=== PATIENT | male | born 1970 | race Caucasian/White ===

== ENCOUNTER 2016-10-31 22:28 | Emergency (ER) | payer BC ==
[2016-10-31 22:36] VITALS: BP 121/79
--- NOTE | 2016-11-01 01:11 | EDM.PDOC ---
ED HPI GENERAL MEDICAL PROBLEM - General Chief Complaint: Syncope Stated Complaint: [facility] Time Seen by Provider: 10/31/16 22:43 Source of Information: Reports: Patient, Family (), RN Notes Reviewed History Limitations: Reports: No Limitations - History of Present Illness INITIAL COMMENTS - FREE TEXT/NARRATIVE: The patient states that he was engaging in sexual activity with his around 22:15, when he developed chest pain that radiated up into the left side of his neck, followed by syncope. The patient has had numerous episodes of this since March 2016. The syncope usually resolves after the patient's slaps his face, however, today it did not, therefore she called EMS. EMS apparently arrived, however, the patient and his then drove themselves to the ED, therefore we have no report from EMS. The patient's states that the patient had 2 syncopal or near-syncopal episodes en route to the ED. The patient's states that this occurs about 3 out of 4 times that they have intercourse. 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 Tonight's episode is the fourth or fifth time in the past 2 weeks. The patient has had prior workup for this condition. He has been seen in this and other ERs several times. ER workups have always been negative. He has undergone a stress test, which may have shown some sort of a rhythm disturbance with increased activity, although the patient is not sure. He subsequently underwent a coronary angiogram which was apparently clean. He states that at one point he was placed on a blood pressure medication which he took for about a month, but then stopped because they made his joints ache. At one time, an emergency physician suggested that the patient might be suffering from an anxiety attack, and prescribed the patient Ativan, which he takes only after he becomes symptomatic, including tonight. At present, the patient is complaining only of left subclavicular pain. His vitals here in the ED are normal. The patient's PCP is Dr. Flores. Left Clavicle Pain Score (Numeric/FACES): 10 - Related Data Allergies Allergy/AdvReac Type Severity Reaction Status Date / Time morphine Allergy Respiratory Verified 03/11/16 12:25 Distress Home Meds: Home Meds Ascorbic Acid [Vitamin C] 1,000 mg PO DAILY 03/30/15 [History] Calcium Carbonate [Calcium] 500 mg PO DAILY 03/30/15 [History] Cyanocobalamin (Vitamin B12) [Vitamin B12] 1,000 mcg PO DAILY 03/30/15 [History] Levothyroxine 125 mcg PO DAILY 03/30/15 [History] Mancore. PO BID 03/30/15 [History] Multivitamin [Daily Multiple Vitamin] 1 tab PO DAILY 03/30/15 [History] Naproxen Sodium 220 mg PO DAILY 03/30/15 [History] LORazepam [Ativan] 1 mg PO ASDIRECTED PRN #16 tablet 03/11/16 [Rx] Past Medical History Endocrine/Metabolic History: Reports: Hypothyroidism - Past Surgical History Musculoskeletal Surgical History: Reports: Arthroscopic Knee (right, x 2) Social & Family History - Family History Family Medical History: Noncontributory - Tobacco Use Smoking Status *Q: Former Smoker Tobacco Use Within Last Twelve Months: Cigars Years of Tobacco use: 1 Packs/Tins Daily: 0.1 - Alcohol Use Alcohol Use History: Yes Alcohol Use Frequency: Socially - Recreational Drug Use Recreational Drug Use: No - Living Situation & Occupation Living situation: Reports: , with Spouse, with Family (3 kids) 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) ED ROS GENERAL - Review of Systems Review Of Systems: See Below Constitutional: Reports: No Symptoms HEENT: Reports: No Symptoms Respiratory: Reports: No Symptoms Cardiovascular: Reports: No Symptoms Endocrine: Reports: No Symptoms GI/Abdominal: Reports: No Symptoms : Reports: No Symptoms Musculoskeletal: Reports: No Symptoms Skin: Reports: No Symptoms Neurological: Reports: No Symptoms Psychiatric: Reports: No Symptoms Hematologic/Lymphatic: Reports: No Symptoms Immunologic: Reports: No Symptoms - Physical Exam Exam: See Below Exam Limited By: No Limitations General Appearance: Alert, WD/WN, No Apparent Distress Eye Exam: Bilateral Eye: Normal Inspection Ears: Normal External Exam, Hearing Grossly Normal Nose: Normal Inspection, No Blood Throat/Mouth: Normal Inspection, Normal Lips, Normal Voice, No Airway Compromise Head Exam: Atraumatic, Normocephalic Neck: Normal Inspection, Full Range of Motion Respiratory/Chest: No Respiratory Distress, Lungs Clear, Normal Breath Sounds, No Accessory Muscle Use Cardiovascular: Normal Peripheral Pulses, Regular Rate, Rhythm, No Gallop, No JVD, No Murmur, No Rub GI/Abdominal: Normal Bowel Sounds, Soft, Non-Tender, No Organomegaly, No Distention, No Abnormal Bruit, No Mass (Male) Exam: Deferred Rectal (Males) Exam: Deferred Neuro Exam (Abbreviated): Alert, Oriented, Normal Cognition, No Motor/Sensory Deficits Back Exam: Normal Inspection, Full Range of Motion, NT Extremities: Normal Inspection, Normal Range of Motion, No Pedal Edema, Normal Capillary Refill Psychiatric: Normal Affect Skin Exam: Warm, Dry, Intact, Normal Color, No Rash EKG INTERPRETATION EKG Date: 10/31/16 Time: 23:55 Rhythm: NSR Rate (Beats/Min): 81 [place]: Normal P-Wave: Present (short W[place] interval - 114 ms) QRS: Normal ST-T: Normal QT: Normal Comparison: Change From Previous EKG (03/11/2016 - had inverted P-waves) Course - Vital Signs Last Recorded V/S: Last Vital Signs Temp 36.8 C 10/31/16 22:32 Pulse 100 10/31/16 22:32 Resp 21 H 10/31/16 22:32 BP 121/79 10/31/16 22:32 Pulse Ox 94 L 10/31/16 22:32 Orthostatic Blood Pressure [ 119/79 Standing] Orthostatic Blood Pressure [ 116/63 Sitting] - Orders/Labs/Meds Orders: Active Orders 24 hr Category Date Time Status EKG Documentation Completion [RC] STAT Care 10/31/16 23:32 Active Orthostatic Vital Signs [RC] STAT Care 10/31/16 22:44 Active Ang Chest [CT] Stat Exams 10/31/16 23:32 Taken Labs: Laboratory Tests 10/31/16 10/31/16 10/31/16 Range/Units 23:45 23:45 23:50 WBC 8.72 (4.23-9.07) K/mm3 RBC 4.40 L (4.63-6.08) M/mm3 Hgb 14.0 (13.7-17.5) gm/L Hct 42.0 (40.1-51.0) % MCV 95.5 H (79.0-92.2) fl MCH 31.8 (25.7-32.2) pg MCHC 33.3 (32.2-35.5) g/dl RDW Std Deviation 47.1 H (35.1-43.9) fL Plt Count 285 (163-337) K/mm3 MPV 9.3 L (9.4-12.3) fl Neutrophils % (Manual) 56 (40-60) % Band Neutrophils % 0 (0-10) % Lymphocytes % (Manual) 30 (20-40) % Atypical Lymphs % 2 % Monocytes % (Manual) 8 (2-10) % Eosinophils % (Manual) 4 (0.8-7.0) % Basophils % (Manual) 0 L (0.2-1.2) Platelet Estimate Adequate Plt Morphology Comment Normal Poikilocytosis 1+ slight Anisocytosis 1+ slight Microcytosis 1+ slight Macrocytosis 1+ slight Tear Drop Cells 1+ slight RBC Morph Comment Abnormal Sodium 140 (136-145) mEq/L Potassium 4.0 (3.5-5.1) mEq/L Chloride 106 (98-107) mEq/L Carbon Dioxide 23 (21-32) mEq/L Anion Gap 15.0 (5-15) BUN 18 (7-18) mg/dL Creatinine 1.3 (0.7-1.3) mg/dL Est Cr Clr Drug Dosing TNP Estimated GFR (MDRD) 60 (>60) mL/min BUN/Creatinine Ratio 13.8 L (14-18) Glucose 96 (74-106) mg/dL Calcium 9.0 (8.5-10.1) mg/dL Total Bilirubin 0.2 (0.2-1.0) mg/dL AST 66 H (15-37) U/L ALT 44 (16-63) U/L Alkaline Phosphatase 72 (46-116) U/L Total Protein 7.3 (6.4-8.2) g/dl Albumin 4.0 (3.4-5.0) g/dl Globulin 3.3 gm/dL Albumin/Globulin Ratio 1.2 (1-2) Urine Opiates Screen Negative (NEGATIVE) Ur Buprenorphine Scrn Negative (NEGATIVE) Ur Oxycodone Screen Negative (NEGATIVE) Urine Methadone Screen Negative (NEGATIVE) Ur Propoxyphene Screen Negative (NEGATIVE) Ur Barbiturates Screen Negative (NEGATIVE) Ur Tricyclics Screen Negative (NEGATIVE) Ur Phencyclidine Scrn Negative (NEGATIVE) Ur Amphetamine Screen Negative (NEGATIVE) U Methamphetamines Scrn Negative (NEGATIVE) U Benzodiazepines Scrn Negative (NEGATIVE) U Cocaine Metab Screen Negative (NEGATIVE) U Marijuana (THC) Screen Negative (NEGATIVE) - Radiology Interpretation Free Text/Narrative:: CT angiogram of the chest is read by [facility] as "No acute findings." - Re-Assessments/Exams Free Text/Narrative Re-Assessment/Exam: 11/01/16 01:23 Test results discussed with the patient and his . 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 Additionally , he does not have symptoms if he is exercising but not otherwise emotionally stressed. I will refer the patient to Dr. Prasad, EP System Consultant at [facility]. In the meantime, I am advising him that he avoid any of the known precipitators of his symptoms, such as arguments with his teenager, excessive stress at work, and sexual intercourse. The patient and his have agreed. Departure - Departure Time of Disposition: 01:44 Disposition: Home, Self-Care 01 Condition: Good Clinical Impression: Syncope, Shortened WY interval - Discharge Information Referrals: PCP,Unknown [Primary Care Provider] - Favian Prasad [Ordering Only Provider] - Forms: ED Department Discharge Additional Instructions: You were seen in the emergency room for chest pain radiating into your neck, along with passing out after sexual intercourse. Workup in the ER included blood work, a urine drug screen, an ECG, a CT angiogram of your chest, and positional blood pressure checks. Your entire workup was unremarkable, with the exception of your ECG, which showed a normal sinus rhythm with a short WY interval. It was compared to a prior ECG dated 03/11/2016, which, at that time, you had inverted P waves. We are concerned that you may have a condition called catecholaminergic polymorphous ventricular tachycardia. Please follow-up with the EP System Consultant Dr. Favian Prasad, at the next available appointment. In the meantime, we recommend that you avoid known precipitators of your symptoms, such as emotional arguments with your teenager, excessive stress at work, and sexual activity. If any other problems, please do not hesitate to return to the ER. - My Orders Last 24 Hours: My Active Orders 10/31/16 22:44 Orthostatic Vital Signs [RC] STAT 10/31/16 23:32 EKG Documentation Completion [RC] STAT Ang Chest [CT] Stat - Assessment/Plan Last 24 Hours: My Active Orders 10/31/16 22:44 Orthostatic Vital Signs [RC] STAT 10/31/16 23:32 EKG Documentation Completion [RC] STAT Ang Chest [CT] Stat
--- NOTE | 2016-11-01 07:17 | CT ---
CT chest Technique: Multiple axial sections through the chest were obtained. Intravenous contrast performed as study was a pulmonary angiogram protocol. Comparison: Previous chest x-ray of 03/31/15 is available. Findings: Small 5 mm nodule is identified within the right upper lung. Lungs otherwise are clear. Nodule contains no calcifications. Mediastinum and hilar regions show no adenopathy or mass. No coronary artery calcification is seen. No pericardial thickening is seen. Small portion of the visualized upper abdominal structures are within normal limits. Pulmonary arteries show no filling defects. Nothing identified to indicate pulmonary embolism. Impression: 1. Small 5 mm nodule within the right upper lung. Recommend follow-up noncontrast chest CT in one year to confirm stability. 2. Other portions of the CT exam of the chest appear unremarkable. No findings of pulmonary embolism are seen. Diagnostic code #9 Agree with preliminary report issued by [employer] ([facility] report dictated on 11/01/16, 1:35 AM Central Time)
== END 2016-11-01 01:58 | disposition home or self-care (01) ==
LOC: JD.ED 22:28
DX: R55 Syncope and collapse (principal); R94.31 Abnormal electrocardiogram [ECG] [EKG]; E03.9 Hypothyroidism, unspecified; Z88.5 Allergy status to narcotic agent; Z79.899 Other long term (current) drug therapy; Z87.891 Personal history of nicotine dependence
CPT/HCPCS: 36415; 71275; 71275-26; 80053; 80306; 85025; 93005; 99284; 99285-25

== ENCOUNTER 2017-02-06 16:02 | Emergency (ER) | payer OTHER, BC ==
[2017-02-06 16:14] VITALS: BP 110/77
[2017-02-06] MEDS ORDERED: Ketorolac 60 MG/2 ML SDV IM ONE (16:42)
[2017-02-06] MEDS ORDERED: HYDROmorphone 1 MG/ML Syringe IM ONE (16:42)
[2017-02-06] MEDS ORDERED: Cyclobenzaprine 10 MG Tab PO ONE (16:43)
--- NOTE | 2017-02-06 16:46 | EDM.PDOC ---
ED HPI GENERAL MEDICAL PROBLEM - General Chief Complaint: Upper Extremity Injury/Pain Stated Complaint: HAND GOT STUCK IN A REAL-WORK MENS COMP Time Seen by Provider: 02/06/17 16:16 Source of Information: Reports: Patient History Limitations: Reports: No Limitations - History of Present Illness INITIAL COMMENTS - FREE TEXT/NARRATIVE: Patient is a 46 year old male who presents to the E.D. complaining of right shoulder pain. States He was unloading a 1500 lb reel from his trailer and the reel got away from him. While falling off of the trailer his right hand which was gloved got caught thus had to pull excessively hard to free his hand so that he would not fall with the reel. States pain is experiencing severe pain to the posterior shoulder and tricep region. States pain is worsened with any type of movement and palpation. Occasionally gets n/t to his 4th and 5th fingers on affected hand. States he has no history of previous injury to the affected shoulder. This is a work related injury. Right Shoulder Pain Score (Numeric/FACES): 10 - Related Data Allergies Allergy/AdvReac Type Severity Reaction Status Date / Time hydromorphone [From Dilaudid] Allergy Facial Verified 02/06/17 18:31 Swelling morphine Allergy Respiratory Verified 02/06/17 16:14 Distress Home Meds: Home Meds Cyanocobalamin (Vitamin B12) [Vitamin B12] 1,000 mcg PO DAILY 03/30/15 [History] Levothyroxine 175 mcg PO DAILY 03/30/15 [History] Mancore. PO BID 03/30/15 [History] Multivitamin [Daily Multiple Vitamin] 1 tab PO DAILY 03/30/15 [History] Cyclobenzaprine [Flexeril] 10 mg PO TID PRN #20 tablet 02/06/17 [Rx] Ibuprofen 800 mg PO Q8HR PRN #20 tablet 02/06/17 [Rx] Past Medical History Cardiovascular History: Reports: Syncope Psychiatric History: Reports: Anxiety Endocrine/Metabolic History: Reports: Hypothyroidism - Infectious Disease History Infectious Disease History: Reports: None - Past Surgical History Musculoskeletal Surgical History: Reports: Arthroscopic Knee Social & Family History - Family History Family Medical History: Noncontributory - Tobacco Use Smoking Status *Q: Former Smoker Years of Tobacco use: 1 Packs/Tins Daily: 0.1 - Recreational Drug Use Recreational Drug Use: No - Living Situation & Occupation Living situation: Reports: with Family, , with Spouse 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 ED EXAM, GENERAL - Physical Exam Exam: See Below Exam Limited By: No Limitations General Appearance: Alert, WD/WN, Moderate Distress Ears: Hearing Grossly Normal Nose: Normal Inspection Throat/Mouth: Normal Voice, No Airway Compromise Head: Atraumatic, Normocephalic Neck: Normal Inspection, Supple, Non-Tender, Full Range of Motion. No: Lymphadenopathy (L), Lymphadenopathy (R) Respiratory/Chest: No Respiratory Distress, Lungs Clear, Normal Breath Sounds, No Accessory Muscle Use, Chest Non-Tender Cardiovascular: Normal Peripheral Pulses, Regular Rate, Rhythm, No Murmur Peripheral Pulses: 2+: Radial (R) Back Exam: Normal Inspection Extremities: Normal Inspection, Limited Range of Motion, Other (On inspection of the right shoulder no asymmetry noted. Patient has tenderness to the posterior aspect of the right shoulder/upper back worse with palpation and elevation of the arm. Patient able to flex and extend the lower arm with no difficulties along with supination or pronation of the hand. No bony abnormalities noted on palpation no pain with palpation of the elbow wrist or hand. Pain noted along the bicep and tricep region. Patient is very apprehensive with moving his arm.) Neurological: Alert, Oriented, CN II-XII Intact, Normal Cognition, No Motor/ Sensory Deficits Psychiatric: Normal Affect, Normal Mood Skin Exam: Warm, Dry, Intact, Normal Color Course - Vital Signs Last Recorded V/S: Last Vital Signs Temp 96.8 F 02/06/17 16:11 Pulse 80 02/06/17 16:11 Resp 16 02/06/17 16:11 BP 110/77 02/06/17 16:11 Pulse Ox 98 02/06/17 16:11 - Orders/Labs/Meds Meds: Medications Discontinued Medications Generic Name Dose Route Start Last Admin Trade Name Freq PRN Reason Stop Dose Admin Cyclobenzaprine HCl 10 mg 02/06/17 16:43 02/06/17 17:03 Flexeril PO 02/06/17 16:44 10 mg ONETIME ONE Administration Diphenhydramine HCl 50 mg 02/06/17 18:20 02/06/17 18:28 Benadryl PO 02/06/17 18:21 50 mg ONETIME ONE Administration Hydromorphone HCl 1 mg 02/06/17 16:42 02/06/17 17:07 Dilaudid IM 02/06/17 16:43 1 mg ONETIME ONE Administration Ketorolac Tromethamine 60 mg 02/06/17 16:42 02/06/17 17:03 Toradol IM 02/06/17 16:43 60 mg ONETIME ONE Administration - Re-Assessments/Exams Free Text/Narrative Re-Assessment/Exam: On examination findings are concerning for muscle strain to the right upper back /shoulder/upper arm. No bony abnormalities noted. No x-ray obtained. Will treat the pain with Dilaudid 1 mg IM, Toradol 60 mg IM, and Flexeril 10 mg by mouth. 02/06/17 18:13 Reassessment, patient up walking feeling much better. 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 He is ready be discharged home. Ride is present. 02/06/17 18:20 patient states he is feeling little itchy after receiving the Dilaudid. He doesn't allergy to morphine. He has no shortness of breath or sensation throat is swelling shut. I have opted to order Benadryl 50 mg by mouth. Departure - Departure Time of Disposition: 18:13 Disposition: Home, Self-Care 01 Condition: Good Clinical Impression: Muscle strain of right scapular region Qualifiers: Encounter type: initial encounter Qualified Code(s): S46.911A - Strain of unspecified muscle, fascia and tendon at shoulder and upper arm level, right arm , initial encounter Right shoulder strain Qualifiers: Encounter type: initial encounter Qualified Code(s): S46.911A - Strain of unspecified muscle, fascia and tendon at shoulder and upper arm level, right arm , initial encounter - Discharge Information Prescriptions: Ibuprofen 800 mg PO Q8HR PRN #20 tablet PRN Reason: Pain (Severe 7-10) Cyclobenzaprine [Flexeril] 10 mg PO TID PRN #20 tablet PRN Reason: Pain (Severe 7-10) Instructions: Muscle Strain, [id number] Referrals: PCP,Unknown [Ordering Only Provider] - Forms: ED Department Discharge, ED Return to Work/School Form Additional Instructions: As discussed take Flexeril one tab 3 times a day as needed for muscle spasms and pain. Take ibuprofen 800 mg every 8 hours with plenty of water and food. Can utilize Tylenol 650 mg every 6 hours as needed for pain in addition. Apply ice to affected area 4-6 times daily, 20 to duration, do not apply ice directly on the skin. Follow-up with occupational provider tomorrow for reevaluation, modification a job duties, and PT referral. Do not drive this evening since receiving a sedative medication while in the ED. Do not drive while taking the Flexeril. Return to the ED as needed for any new or worsening symptoms.
[2017-02-06] MEDS ORDERED: diphenhydrAMINE 50 MG Cap PO ONE (18:20)
== END 2017-02-06 18:33 | disposition home or self-care (01) ==
LOC: JD.ED 16:02
DX: S46.911A Strain of unspecified muscle, fascia and tendon at shoulder and upper arm level, right arm, initial encounter (principal); E03.9 Hypothyroidism, unspecified; Z88.5 Allergy status to narcotic agent; Z79.899 Other long term (current) drug therapy; Z87.891 Personal history of nicotine dependence; X58.XXXA Exposure to other specified factors, initial encounter
CPT/HCPCS: 96372; 99283; A9270; J1170; J1885

== ENCOUNTER 2020-03-04 19:30 | Emergency (ER) | payer BC ==
[2020-03-04] MEDS ORDERED: Sodium Chloride 0.9% 10 ML Syringe FLUSH PRN (19:39)
[2020-03-04] MEDS ORDERED: Sodium Chloride 0.9% 1,000 ML IV SCH (19:45)
--- NOTE | 2020-03-04 20:26 | EDM.PDOC ---
ED HPI GENERAL MEDICAL PROBLEM - General Chief Complaint: Neuro Symptoms/Deficits Stated Complaint: [facility] Time Seen by Provider: 03/04/20 19:38 Source of Information: Reports: Patient, EMS, RN Notes Reviewed - History of Present Illness INITIAL COMMENTS - FREE TEXT/NARRATIVE: 49 yr male has been brought in by EMS with sx of stroke, L facial droop, slurred speech, L upper and lower extrem. weakness. This was called a stroke alert APPARATUS LINEMAN. His states he came home from work around 3:30 this afternoon in normal state of health. He had 2 or 3 shots of whiskey and than fell asleep around 6 PM. Last known well is considered to be 6 PM. She states that around a half an hour later his R arm "extended and he than had tonic clinic jerking primarily of his R shoulder and arm associated with noisy breathing and drooling. This lasted for about 1 to 2 minutes. As he slowly awakened she realized he had new onset L facial droop, slurred speech and LUE and L lower extremity weakness, was not able to stand or walk. When he continued to not get better she than called EMS. There is no known hx of Htn or known seizure disorder. He does smoke. Treatments APPARATUS LINEMAN: Reports: Other (see below) Other Treatments APPARATUS LINEMAN: iv start by ambulance Headache Pain Score (Numeric/FACES): 10 - Related Data Allergies Allergy/AdvReac Type Severity Reaction Status Date / Time hydromorphone [From Dilaudid] Allergy Severe Facial Verified 03/04/20 19:50 Swelling morphine Allergy Severe Respiratory Verified 03/04/20 19:50 Distress Home Meds: Home Meds Cyanocobalamin (Vitamin B12) [Vitamin B12] 1,000 mcg PO DAILY 03/30/15 [History] Ibuprofen 800 mg PO Q8HR PRN #20 tablet 02/06/17 [Rx] Cholecalciferol (Vitamin D3) [Vitamin D3] 1,000 unit PO DAILY 03/04/20 [History] Levothyroxine Sodium [Synthroid] 200 mg PO SUTUTHSA 03/04/20 [History] Levothyroxine Sodium [Synthroid] 225 mg PO MOWEFR 03/04/20 [History] Past Medical History Cardiovascular History: Reports: Syncope Psychiatric History: Reports: Anxiety, Depression Endocrine/Metabolic History: Reports: Hypothyroidism - Infectious Disease History Infectious Disease History: Reports: None - Past Surgical History Musculoskeletal Surgical History: Reports: Arthroscopic Knee Social & Family History - Family History Family Medical History: Noncontributory - Tobacco Use Tobacco Use Status *Q: Current Every Day Tobacco User Years of Tobacco use: 32 Packs/Tins Daily: 1 - Caffeine Use Caffeine Use: Reports: Coffee, Energy Drinks - Recreational Drug Use Recreational Drug Use: No - Living Situation & Occupation Living situation: Reports: with Family, , with Spouse 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 Denies: Shortness of Breath Cardiovascular: Denies: Chest Pain GI/Abdominal: Denies: Abdominal Pain, Nausea, Vomiting Musculoskeletal: Denies: Arm Pain, Leg Pain Skin: Denies: Rash Neurological: Reports: Headache, Numbness (L face and LUE, LLE), Weakness (L facial droop, LUE, LLE) ED EXAM, NEURO - Physical Exam Exam: See Below General Appearance: Alert, Anxious, Moderate Distress Eye Exam: Bilateral Eye: PERRL Ears: Normal External Exam Throat/Mouth: Other (L facial droop, oral mucosa dry) Head Exam: Atraumatic. No: Facial Swelling Respiratory/Chest: No Respiratory Distress, Lungs Clear, Normal Breath Sounds Cardiovascular: Regular Rate, Rhythm GI/Abdominal: Non-Tender Neurological: Alert, Oriented x 3, Other (He has L facial droop, he has Mild to moderate weakness LUE, LLE on intial and repeat exams, He has mild LUE drift and marked LLE drift, unable to hold leg off of cot for more than 1 to 2 seconds) Extremities: No: Pedal Edema, Leg Pain #1 Interpretation EKG Date: 03/04/20 Rhythm: NSR Weems: Normal P-Wave: Present QRS: Normal ST-T: Normal Course - Vital Signs Last Recorded V/S: Last Vital Signs Temp 97.7 F 03/04/20 21:10 Pulse 100 03/04/20 21:10 Resp 16 03/04/20 21:10 BP 138/89 03/04/20 21:10 Pulse Ox 94 L 03/04/20 21:10 - Orders/Labs/Meds Orders: Active Orders 24 hr Category Date Time Status Chest 1V Frontal [CR] Stat Exams 03/04/20 19:46 Taken Head wo Cont [CT] Stat Exams 03/04/20 19:40 Taken Peripheral IV Insertion Pediatric [OM.PC] Routine Oth 03/04/20 19:39 Ordered Labs: Laboratory Tests 03/04/20 03/04/20 03/04/20 Range/Units 19:33 19:35 19:35 WBC 7.49 (4.23-9.07) K/mm3 RBC 4.68 (4.63-6.08) M/mm3 Hgb 15.5 D (13.7-17.5) gm/dl Hct 45.9 (40.1-51.0) % MCV 98.1 H (79.0-92.2) fl MCH 33.1 H (25.7-32.2) pg MCHC 33.8 (32.2-35.5) g/dl RDW Std Deviation 52.8 H (35.1-43.9) fL Plt Count 333 (163-337) K/mm3 MPV 9.5 (9.4-12.3) fl Neut % (Auto) 46.5 (34.0-67.9) % Lymph % (Auto) 33.2 (21.8-53.1) % Stone % (Auto) 14.6 H (5.3-12.2) % Eos % (Auto) 4.1 (0.8-7.0) Baso % (Auto) 0.9 (0.1-1.2) % Neut # (Auto) 3.48 (1.78-5.38) K/mm3 Lymph # (Auto) 2.49 (1.32-3.57) K/mm3 Stone # (Auto) 1.09 H (0.30-0.82) K/mm3 Eos # (Auto) 0.31 (0.04-0.54) K/mm3 Baso # (Auto) 0.07 (0.01-0.08) K/mm3 PT (9.7-12.0) SECONDS INR APTT (21.7-31.4) SECONDS Sodium 140 (136-145) mEq/L Potassium 3.4 L (3.5-5.1) mEq/L Chloride 104 (98-107) mEq/L Carbon Dioxide 21 (21-32) mEq/L Anion Gap 18.4 H (5-15) BUN 15 (7-18) mg/dL Creatinine 1.4 H (0.7-1.3) mg/dL Est Cr Clr Drug Dosing 70.83 mL/min Estimated GFR (MDRD) 54 (>60) mL/min BUN/Creatinine Ratio 10.7 L (14-18) Glucose 109 H (74-106) mg/dL POC Glucose 98 (70-105) mg/dL Calcium 8.7 (8.5-10.1) mg/dL Total Bilirubin 0.2 (0.2-1.0) mg/dL AST 23 (15-37) U/L ALT 29 (16-63) U/L Alkaline Phosphatase 94 (46-116) U/L Total Protein 7.7 (6.4-8.2) g/dl Albumin 3.8 (3.4-5.0) g/dl Globulin 3.9 gm/dL Albumin/Globulin Ratio 1.0 (1-2) Ethyl Alcohol 0.17 (0.00) gm% SARS-CoV-2 RNA ([facility]GARD) (NEGATIVE) 03/04/20 03/04/20 Range/Units 19:35 20:00 WBC (4.23-9.07) K/mm3 RBC (4.63-6.08) M/mm3 Hgb (13.7-17.5) gm/dl Hct (40.1-51.0) % MCV (79.0-92.2) fl MCH (25.7-32.2) pg MCHC (32.2-35.5) g/dl RDW Std Deviation (35.1-43.9) fL Plt Count (163-337) K/mm3 MPV (9.4-12.3) fl Neut % (Auto) (34.0-67.9) % Lymph % (Auto) (21.8-53.1) % Stone % (Auto) (5.3-12.2) % Eos % (Auto) (0.8-7.0) Baso % (Auto) (0.1-1.2) % Neut # (Auto) (1.78-5.38) K/mm3 Lymph # (Auto) (1.32-3.57) K/mm3 Stone # (Auto) (0.30-0.82) K/mm3 Eos # (Auto) (0.04-0.54) K/mm3 Baso # (Auto) (0.01-0.08) K/mm3 PT 9.8 (9.7-12.0) SECONDS INR < 0.93 APTT 23.7 (21.7-31.4) SECONDS Sodium (136-145) mEq/L Potassium (3.5-5.1) mEq/L Chloride (98-107) mEq/L Carbon Dioxide (21-32) mEq/L Anion Gap (5-15) BUN (7-18) mg/dL Creatinine (0.7-1.3) mg/dL Est Cr Clr Drug Dosing mL/min Estimated GFR (MDRD) (>60) mL/min BUN/Creatinine Ratio (14-18) Glucose (74-106) mg/dL POC Glucose (70-105) mg/dL Calcium (8.5-10.1) mg/dL Total Bilirubin (0.2-1.0) mg/dL AST (15-37) U/L ALT (16-63) U/L Alkaline Phosphatase (46-116) U/L Total Protein (6.4-8.2) g/dl Albumin (3.4-5.0) g/dl Globulin gm/dL Albumin/Globulin Ratio (1-2) Ethyl Alcohol (0.00) gm% SARS-CoV-2 RNA (EDGARD) Negative (NEGATIVE) Meds: Medications Discontinued Medications Generic Name Dose Route Start Last Admin Trade Name Poloq PRN Reason Stop Dose Admin Alteplase, Recombinant Confirm 03/04/20 20:41 03/04/20 21:26 Activase Administered 03/04/20 20:42 Not Given Dose 100 mg .ROUTE .STK-MED ONE Alteplase, Recombinant Confirm 03/04/20 20:43 03/04/20 21:26 Activase Administered 03/04/20 20:44 Not Given Dose 100 mg .ROUTE .STK-MED ONE Alteplase, Recombinant 8.6 mg 03/04/20 21:19 03/04/20 20:55 Activase IVPUSH 03/04/20 21:20 8.6 mg .BOLUS ONE Administration Sodium Chloride 1,000 mls @ 150 mls/hr 10/28/20 19:45 03/04/20 20:34 Normal Saline IV 999 mls/hr ASDIRECTED DEANNA Infusion Alteplase, Recombinant 50 mg/ 0 mls @ 0 mls/hr 03/04/20 22:00 Alteplase, Recombinant IV 03/04/20 22:59 ONETIME ONE Protocol Alteplase, Recombinant 77.4 mg 0 mls @ 0 mls/hr 03/04/20 21:19 03/04/20 21:00 / Alteplase, Recombinant IV 03/04/20 21:20 77.4 mls/hr .INFUSION ONE Administration Sodium Chloride 10 ml 03/04/20 19:39 03/04/20 19:46 Saline Flush FLUSH 10 ml ASDIRECTED PRN Administration Keep Vein Open - Re-Assessments/Exams Free Text/Narrative Re-Assessment/Exam: 03/04/20 21:[address] normal. NSR, no ectopy. Etoh 0.17. Continued mild L facial droop on reexam although not as pronounced as on arrival. Continued LUE and LLE weakness with LUE and LLE drift. Called [facility]. They are on diversion. Discussed with Dr Burt, Neurology Specialist non destructive evaluation technician for [facility] who does accept patient in transfer. He does recomend TPA with consideration that we were still within the 3 hour window and with moderately severe L sided deficit in a previously health 49 year old male. Risk/benefits discussed with patient and his . They do agree to him getting the TPA. TPA was ordered, bolus given, infusion started. [facility] Departure - Departure Time of Disposition: 18:45 Disposition: DC/Tfer to Acute Hospital 02 Condition: Serious Clinical Impression: CVA (cerebral vascular accident) Qualifiers: CVA mechanism: unspecified Qualified Code(s): I63.9 - Cerebral infarction, unspecified Alcohol intoxication Qualifiers: Complication of substance-induced condition: uncomplicated Qualified Code(s): F10.920 - Alcohol use, unspecified with intoxication, uncomplicated - Discharge Information Referrals: Solitario Saenz MD [Primary Care Provider] - Forms: ED Department Discharge Sepsis Event Note (ED) - Evaluation Sepsis Screening Result: No Definite Risk - Focused Exam Vital Signs: Vital Signs Temp Pulse Resp BP Pulse Ox 10/28/20 21:10 97.7 F 100 16 138/89 94 L 03/04/20 20:23 96.9 F 98 20 153/90 H 97 - My Orders Last 24 Hours: My Active Orders 03/04/20 19:39 Peripheral IV Insertion Pediatric [OM.PC] Routine 03/04/20 19:40 Head wo Cont [CT] Stat 03/04/20 19:46 Chest 1V Frontal [CR] Stat - Assessment/Plan Last 24 Hours: My Active Orders 03/04/20 19:39 Peripheral IV Insertion Pediatric [OM.PC] Routine 03/04/20 19:40 Head wo Cont [CT] Stat 03/04/20 19:46 Chest 1V Frontal [CR] Stat
[2020-03-04] MEDS ORDERED: INFUSION IV ONE ×2 (21:19→22:00)
[2020-03-04] MEDS ORDERED: ALTEPLASE IV ONE ×2 (21:19→22:00)
[2020-03-04 21:57] VITALS: BP 138/89; PULSE 100
--- NOTE | 2020-03-05 16:23 | CR ---
PROCEDURE INFORMATION: Exam: XR Chest, 1 View Exam date and time: 03/04/2020 8:25 PM Age: 49 years old Clinical indication: Cough and other: Fatigue TECHNIQUE: Imaging protocol: XR of the chest Views: 1 view. COMPARISON: CT Ang Chest 10/31/2016 11:57 PM FINDINGS: Lungs: Atelectatic and/or early infiltrative changes noted within the right lung base. The lungs are hyperinflated, consistent with underlying small airways disease. Pleural space: Unremarkable. No pleural effusion. No pneumothorax. Heart/Mediastinum: Unremarkable. No cardiomegaly. Bones/joints: Unremarkable. IMPRESSION: 1. Atelectatic and/or early infiltrative changes noted within the right lung base. 2. The lungs are hyperinflated, consistent with underlying small airways disease. Thank you for allowing us to participate in the care of your patient. Dictated and Authenticated by: Chapincito Mccullough DO 03/04/2020 9:56 PM Central Time ([place] & [place]) MTDAdia
--- NOTE | 2020-03-05 16:24 | CT ---
PROCEDURE INFORMATION: Exam: CT Head Without Contrast Exam date and time: 03/04/2020 7:46 PM Age: 49 years old Clinical indication: Weakness, extremity; Left; Patient HX: Headache lt facial droop. Lt hand, arm, leg weakness TECHNIQUE: Imaging protocol: Computed tomography of the head without contrast. Radiation optimization: All CT scans at this facility use at least one of these dose optimization techniques: automated exposure control; mA and/or kV adjustment per patient size (includes targeted exams where dose is matched to clinical indication); or iterative reconstruction. Other technique: STROKE PROTOCOL was implemented. COMPARISON: No relevant prior studies available. FINDINGS: Brain: Normal. No hemorrhage. Unremarkable white matter. No mass effect. Cerebral ventricles: No ventriculomegaly. Bones/joints: No acute fracture. Paranasal sinuses: Visualized sinuses are unremarkable. No fluid levels. Mastoid air cells: Visualized mastoid air cells are well aerated. Soft tissues: No acute changes IMPRESSION: No acute intracranial abnormality. ASSESSMENT: ASPECTS ([place] Stroke Program Early CT Score) is 10. Thank you for allowing us to participate in the care of your patient. Dictated and Authenticated by: Chapincito Mccullough DO 03/04/2020 9:07 PM Central Time ([place] & [place]) MTDD
== END 2020-03-04 21:10 ==
LOC: JD.ED 19:30
DX: I63.9 Cerebral infarction, unspecified (principal); F10.120 Alcohol abuse with intoxication, uncomplicated; Y90.6 Blood alcohol level of 120-199 mg/100 ml; F17.210 Nicotine dependence, cigarettes, uncomplicated; E03.9 Hypothyroidism, unspecified; Z79.899 Other long term (current) drug therapy; Z88.5 Allergy status to narcotic agent; Z20.828 Contact with and (suspected) exposure to other viral communicable diseases
CPT/HCPCS: 36415; 70450; 71045; 80053; 80307; 82962; 85025; 85610; 85730; 87635; 93005; 96374; 99285; J2997; J7030; U0002

== ENCOUNTER 2021-02-28 13:36 | Emergency (ER) | payer BC ==
[2021-02-28 14:05] VITALS: BP 105/71; PULSE 78
[2021-02-28] MEDS ORDERED: Sodium Chloride 0.9% 10 ML Syringe FLUSH PRN (15:22)
--- NOTE | 2021-02-28 15:31 | EDM.PDOC ---
ED HPI GENERAL MEDICAL PROBLEM - General Chief Complaint: Abdominal Pain Stated Complaint: ABDOMINAL PAIN Time Seen by Provider: 02/28/21 15:10 Source of Information: Reports: Patient, RN Notes Reviewed History Limitations: Reports: No Limitations - History of Present Illness INITIAL COMMENTS - FREE TEXT/NARRATIVE: Patient is a 50-year-old male who presents to the ER for evaluation of his left lower quadrant abdominal pain, and rectal bleeding. Patient states that this all started this morning. He noted that he thought he was having diarrhea, but when he checked the toilet, it was all blood. He states it was bright red blood. He is having left lower quadrant abdominal cramping/pain associated with this. Does not have a history of hemorrhoids or issues with rectal bleeding in the past. Denying any fevers or chills, cough or shortness of breath or any sort of nausea/vomiting/diarrhea. States that his bowel movements are fairly regular for himself, and his last regular bowel movement was yesterday. Left Abdominal Pain Score (Numeric/FACES): 5 - Related Data Allergies Allergy/AdvReac Type Severity Reaction Status Date / Time hydromorphone [From Dilaudid] Allergy Severe Facial Verified 02/28/21 14:05 Swelling morphine Allergy Severe Respiratory Verified 02/28/21 14:05 Distress Home Meds: Home Meds Levothyroxine Sodium [Synthroid] 200 mg PO SUTUTHSA 03/04/20 [History] Levothyroxine Sodium [Synthroid] 225 mg PO MOWEFR 03/04/20 [History] buPROPion [buPROPion XL] 150 mg PO BID 02/28/21 [History] Past Medical History Cardiovascular History: Reports: Syncope Psychiatric History: Reports: Anxiety, Depression Endocrine/Metabolic History: Reports: Hypothyroidism - Infectious Disease History Infectious Disease History: Reports: None - Past Surgical History Musculoskeletal Surgical History: Reports: Arthroscopic Knee Social & Family History - Family History Family Medical History: No Pertinent Family History - Tobacco Use Tobacco Use Status *Q: Current Every Day Tobacco User Years of Tobacco use: 20 Packs/Tins Daily: 1 - Caffeine Use Caffeine Use: Reports: Coffee - Alcohol Use Days Per Week of Alcohol Use: 7 Number of Drinks Per Day: 10 Total Drinks Per Week: 70 - Recreational Drug Use Recreational Drug Use: No - Living Situation & Occupation Living situation: Reports: with Family, , with Spouse 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 ED EXAM, GI/ABD - Physical Exam Exam: See Below Exam Limited By: No Limitations General Appearance: Alert, WD/WN, No Apparent Distress Respiratory/Chest: No Respiratory Distress, Lungs Clear, Normal Breath Sounds, No Accessory Muscle Use, Chest Non-Tender Cardiovascular: Normal Peripheral Pulses, Regular Rate, Rhythm, No Edema GI/Abdominal Exam: Normal Bowel Sounds, Soft, No Distention, No Mass, Tender (LLQ tenderness) Extremities: Normal Inspection, Normal Capillary Refill Neurological: Alert, Oriented, Normal Cognition, No Motor/Sensory Deficits Psychiatric: Normal Affect, Normal Mood Skin Exam: Warm, Dry, Intact, Normal Color, No Rash Course - Vital Signs Last Recorded V/S: Last Vital Signs Temp 98.0 F 02/28/21 14:04 Pulse 78 02/28/21 14:04 Resp 20 02/28/21 14:04 BP 105/71 02/28/21 14:04 Pulse Ox 100 02/28/21 14:04 - Orders/Labs/Meds Orders: Active Orders 24 hr Category Date Time Status Peripheral IV Care [RC] . DIRECTED Care 02/28/21 15:22 Ordered Abdomen Pelvis w Cont [CT] Stat Exams 02/28/21 15:22 Ordered Sodium Chloride 0.9% [Saline Flush] Med 02/28/21 15:22 Ordered 10 ml FLUSH ASDIRECTED PRN Peripheral IV Insertion Adult [OM.PC] Routine Oth 02/28/21 15:22 Ordered Medication Orders Sodium Chloride (Sodium Chloride 0.9% 10 Ml Syringe) 10 ml FLUSH ASDIRECTED PRN PRN Reason: Keep Vein Open Last Admin: 02/28/21 15:35 Dose: 10 ml Documented by: BAILEY Labs: Laboratory Tests 02/28/21 02/28/21 02/28/21 Range/Units 15:21 15:21 15:21 WBC 9.12 H (4.23-9.07) K/mm3 RBC 4.76 (4.63-6.08) M/mm3 Hgb 15.8 (13.7-17.5) gm/dl Hct 46.5 (40.1-51.0) % MCV 97.7 H (79.0-92.2) fl MCH 33.2 H (25.7-32.2) pg MCHC 34.0 (32.2-35.5) g/dl RDW Std Deviation 50.7 H (35.1-43.9) fL Plt Count 331 (163-337) K/mm3 MPV 9.5 (9.4-12.3) fl Neut % (Auto) 68.4 H (34.0-67.9) % Lymph % (Auto) 19.6 L (21.8-53.1) % Quay % (Auto) 9.5 (5.3-12.2) % Eos % (Auto) 1.6 (0.8-7.0) Baso % (Auto) 0.5 (0.1-1.2) % Neut # (Auto) 6.22 H (1.78-5.38) K/mm3 Lymph # (Auto) 1.79 (1.32-3.57) K/mm3 Quay # (Auto) 0.87 H (0.30-0.82) K/mm3 Eos # (Auto) 0.15 (0.04-0.54) K/mm3 Baso # (Auto) 0.05 (0.01-0.08) K/mm3 Sodium 137 (136-145) mEq/L Potassium 4.5 (3.5-5.1) mEq/L Chloride 102 (98-107) mEq/L Carbon Dioxide 25 (21-32) mEq/L Anion Gap 14.5 (5-15) BUN 20 H (7-18) mg/dL Creatinine 1.2 (0.7-1.3) mg/dL Est Cr Clr Drug Dosing 81.73 mL/min Estimated GFR (MDRD) > 60 (>60) mL/min BUN/Creatinine Ratio 16.7 (14-18) Glucose 94 (70-99) mg/dL Calcium 9.2 (8.5-10.1) mg/dL Total Bilirubin 0.3 (0.2-1.0) mg/dL AST 23 (15-37) U/L ALT 29 (16-63) U/L Alkaline Phosphatase 107 (46-116) U/L C-Reactive Protein <0.2 (<1.0) mg/dL Total Protein 7.5 (6.4-8.2) g/dl Albumin 3.6 (3.4-5.0) g/dl Globulin 3.9 gm/dL Albumin/Globulin Ratio 0.9 L (1-2) Lipase 165 (73-393) U/L Influenza Type A RNA (NEGATIVE) Influenza Type B RNA (NEGATIVE) SARS-CoV-2 RNA ([facility]GARD) (NEGATIVE) 02/28/21 Range/Units 15:41 WBC (4.23-9.07) K/mm3 RBC (4.63-6.08) M/mm3 Hgb (13.7-17.5) gm/dl Hct (40.1-51.0) % MCV (79.0-92.2) fl MCH (25.7-32.2) pg MCHC (32.2-35.5) g/dl RDW Std Deviation (35.1-43.9) fL Plt Count (163-337) K/mm3 MPV (9.4-12.3) fl Neut % (Auto) (34.0-67.9) % Lymph % (Auto) (21.8-53.1) % Quay % (Auto) (5.3-12.2) % Eos % (Auto) (0.8-7.0) Baso % (Auto) (0.1-1.2) % Neut # (Auto) (1.78-5.38) K/mm3 Lymph # (Auto) (1.32-3.57) K/mm3 Quay # (Auto) (0.30-0.82) K/mm3 Eos # (Auto) (0.04-0.54) K/mm3 Baso # (Auto) (0.01-0.08) K/mm3 Sodium (136-145) mEq/L Potassium (3.5-5.1) mEq/L Chloride (98-107) mEq/L Carbon Dioxide (21-32) mEq/L Anion Gap (5-15) BUN (7-18) mg/dL Creatinine (0.7-1.3) mg/dL Est Cr Clr Drug Dosing mL/min Estimated GFR (MDRD) (>60) mL/min BUN/Creatinine Ratio (14-18) Glucose (70-99) mg/dL Calcium (8.5-10.1) mg/dL Total Bilirubin (0.2-1.0) mg/dL AST (15-37) U/L ALT (16-63) U/L Alkaline Phosphatase (46-116) U/L C-Reactive Protein (<1.0) mg/dL Total Protein (6.4-8.2) g/dl Albumin (3.4-5.0) g/dl Globulin gm/dL Albumin/Globulin Ratio (1-2) Lipase (73-393) U/L Influenza Type A RNA Negative (NEGATIVE) Influenza Type B RNA Negative (NEGATIVE) SARS-CoV-2 RNA (EDGARD) Negative (NEGATIVE) Meds: Medications Generic Name Dose Route Start Last Admin Trade Name Freq PRN Reason Stop Dose Admin Sodium Chloride 10 ml 02/28/21 15:22 02/28/21 15:35 Sodium Chloride 0.9% 10 Ml Syringe FLUSH 10 ml ASDIRECTED PRN Administration Keep Vein Open Discontinued Medications Generic Name Dose Route Start Last Admin Trade Name Freq PRN Reason Stop Dose Admin Diatrizoate Meglum/Diatrizoate Sod 90 ml 02/28/21 16:39 02/28/21 17:15 Diatrizoate Meglumine/Diatrizoate Sodium 37% 120 Ml Bottle PO 02/28/21 16:40 45 ml ONETIME ONE Administration Iopamidol 100 ml 02/28/21 16:39 02/28/21 17:16 Iopamidol 612 Mg/Ml 100 Ml Bottle IVPUSH 02/28/21 16:40 100 ml ONETIME ONE Administration Sodium Chloride 10 ml 02/28/21 16:39 02/28/21 17:15 Sodium Chloride 0.9% 10 Ml Syringe FLUSH 02/28/21 16:40 10 ml ONETIME ONE Administration - Re-Assessments/Exams Free Text/Narrative Re-Assessment/Exam: 02/28/21 15:31 Patient presents to the ER for his left lower quadrant abdominal pain and rectal bleeding. Due to his left lower quadrant abdominal pain, will get abdomen pelvis CT with IV and oral contrast, will also get some basic labs and get IV started for ongoing management. 02/28/21 18:18 Laboratory evaluation is unremarkable. CT also is without acute findings. I did go over the case with Dr. Lance, and she would recommend that the patient start on stool softeners to keep his stool soft, and that he follow-up with her in clinic for ongoing management; this was relayed to the patient and he is aware of these findings and will do as such. Departure - Departure Time of Disposition: 18:18 Disposition: Home, Self-Care 01 Condition: Good Clinical Impression: Rectal bleeding - Discharge Information *PRESCRIPTION DRUG MONITORING PROGRAM REVIEWED*: No *COPY OF PRESCRIPTION DRUG MONITORING REPORT IN PATIENT KIA: No Instructions: Rectal Bleeding Referrals: Solitario Saenz MD [Primary Care Provider] - Forms: ED Department Discharge Additional Instructions: You were evaluated in the ER today for your rectal bleeding. Although no definitive cause was identified at today's visit, your laboratory evaluation and CT were unremarkable for any acute findings. It is highly likely that this could be due to hemorrhoids, or proctitis. Your case was discussed with her general surgeon on-call, Dr. Lance, and she would like to follow-up with you in clinic for ongoing management. Please call the [facility] at [phone] and obtain an appoint with Dr. Lance for ongoing management. Would recommend that you keep your stools soft with medications like Colace, Dulcolax, or MiraLAX to promote good bowel health. Please monitor your rectal bleeding, if you should feel increasingly lightheaded, dizzy, or your generalized color should change to more of a pale color in your face, do not hesitate to return to the ER for evaluation. You can take some Tylenol ibuprofen every 6 hours as needed for ongoing pain management. Do not hesitate to return to the ER at any time if symptoms change or worsen. Sepsis Event Note (ED) - Focused Exam Vital Signs: Vital Signs Temp Pulse Resp BP Pulse Ox 02/28/21 14:04 98.0 F 78 20 105/71 100 - My Orders Last 24 Hours: My Active Orders 02/28/21 15:22 Peripheral IV Care [RC] . DIRECTED Abdomen Pelvis w Cont [CT] Stat Sodium Chloride 0.9% [Saline Flush] 10 ml FLUSH ASDIRECTED PRN Peripheral IV Insertion Adult [OM.PC] Routine - Assessment/Plan Last 24 Hours: My Active Orders 02/28/21 15:22 Peripheral IV Care [RC] . DIRECTED Abdomen Pelvis w Cont [CT] Stat Sodium Chloride 0.9% [Saline Flush] 10 ml FLUSH ASDIRECTED PRN Peripheral IV Insertion Adult [OM.PC] Routine
[2021-02-28 16:34] LABS: CORONAVIRUS COVID-19 NAA NEGATIVE (NEGATIVE)
[2021-02-28] MEDS ORDERED: Diatrizoate Meglumine/Diatrizoate Sodium 37% 120 ML Bottle PO ONE (16:39)
[2021-02-28] MEDS ORDERED: Sodium Chloride 0.9% 10 ML Syringe FLUSH ONE (16:39)
[2021-02-28] MEDS ORDERED: Iopamidol 612 MG/ML 100 ML Bottle IVPUSH ONE (16:39)
--- NOTE | 2021-03-01 08:32 | CT ---
CT abdomen and pelvis Technique: Multiple axial sections were obtained from above the dome of the diaphragm inferiorly through the pubic symphysis. Intravenous and oral contrast were utilized. Reconstructed coronal and sagittal images were obtained. Comparison: Prior CT abdomen and pelvis exam of 05/29/12. Findings: Visualized lung bases show mild atelectasis. Liver shows no focal parenchymal abnormality. Gallbladder contains no calcified gallstones. Spleen size is normal. Both adrenal glands show nodularity. Very minimal nodularity is suggested on prior study but findings have increased in size. These findings are most likely benign given the symmetric interval change from prior exam. Kidneys show symmetric contrast enhancement. No hydronephrosis or mass is seen. No ureteral dilatation or ureteral stone is seen. Pancreas appears within normal limits. Abdominal aorta shows atherosclerotic calcification which continues into the iliac vessels. No aneurysm is seen. No retroperitoneal adenopathy or mesenteric abnormalities are seen. No pelvic mass or adenopathy is seen. Contrast is noted throughout the small bowel and colon which appear normal in size. Appendix is normal in size. Bone window settings were reviewed which show disc space narrowing at L5-S1 with vacuum disc phenomena. No acute osseous finding is appreciated. Impression: 1. Nodularity within both adrenal glands. This is increased in size from prior CT exam but is most likely benign since it is symmetric in appearance. 2. Minimal atelectasis within both lung bases. 3. No acute intra-abdominal anomaly is seen. Diagnostic code #2 I agree with preliminary report from [facility], finalized on 02/28/21, 7:13 PM CDT, code 1
== END 2021-02-28 18:30 | disposition home or self-care (01) ==
LOC: JD.ED 13:36
DX: K62.5 Hemorrhage of anus and rectum (principal); E03.9 Hypothyroidism, unspecified; Z88.5 Allergy status to narcotic agent; Z79.899 Other long term (current) drug therapy; Z72.0 Tobacco use; Z20.822 Contact with and (suspected) exposure to COVID-19
CPT/HCPCS: 0240U; 36415; 74177; 80053; 83690; 85025; 86140; 99284; Q9963; Q9967

== ENCOUNTER 2021-12-16 18:35 | Emergency (ER) | payer BC ==
[2021-12-16 19:04] VITALS: BP 126/83; PULSE 126
== END 2021-12-16 21:45 ==
LOC: JD.ED 18:35
DX: R45.851 Suicidal ideations (principal); F10.920 Alcohol use, unspecified with intoxication, uncomplicated; Z20.822 Contact with and (suspected) exposure to COVID-19; E03.9 Hypothyroidism, unspecified; F17.210 Nicotine dependence, cigarettes, uncomplicated; Z88.6 Allergy status to analgesic agent; Z79.899 Other long term (current) drug therapy
CPT/HCPCS: 36415; 80053; 80143; 80179; 80306; 80307; 84443; 85025; 93005; 99285; U0002